=== PATIENT | male | born 1985 | race Caucasian/White ===

== ENCOUNTER 2018-02-01 20:24 | Emergency (ER) | payer MEDICARE, OTHER ==
[~2018-02-01] VITALS: Ht 175.3 cm; Wt 7.7 kg
[~2018-02-01 20:24] MED LIST: AMLO-512 PO; ATOR10TA84 PO; CARV6 PO; CEPH500 PO; ESCI10TA PO; INSU100V12 SQ; KDUR20 PO; LISI-662 PO; PANT40TA25 PO
[2018-02-01 20:47] LABS: GLUCOSE,POINT OF CARE 323 MG/DL (70-110)
[2018-02-01] MEDS ORDERED: KETOROLAC TROMETHAMINE 30 MG/ML VIAL IM ONE (21:30)
[2018-02-01 21:35] VITALS: BP 192/103
== END 2018-02-01 22:07 | disposition home or self-care (01) ==
LOC: EMS 20:26
DX: S42.295A Other nondisplaced fracture of upper end of left humerus, initial encounter for closed fracture (principal); M19.90 Unspecified osteoarthritis, unspecified site; E11.9 Type 2 diabetes mellitus without complications; F17.210 Nicotine dependence, cigarettes, uncomplicated; Z79.4 Long term (current) use of insulin; Z79.899 Other long term (current) drug therapy; W01.0XXA Fall on same level from slipping, tripping and stumbling without subsequent striking against object, initial encounter; Y93.89 Activity, other specified; Y92.89 Other specified places as the place of occurrence of the external cause; Y99.8 Other external cause status
CPT/HCPCS: 73030; 82962; 96372; 99284; J1885

== ENCOUNTER 2020-02-10 21:28 | Inpatient (IN) | payer MEDICARE, MEDICAID ==
[~2020-02-10] VITALS: Ht 175.3 cm; Wt 80.0 kg
[~2020-02-10 21:28] MED LIST changes: +ACET-784 PO; +ALBU2.5V2 NEB; +ALPR0.5T8 PO; -AMLO-512 PO; +AMLO10TA7 PO; +ASPI-728 PO; +BISA-151 PO; +BUME1TAB34 IVP; +CARV25TA77 PO; -CARV6 PO; -CEPH500 PO; +CHOL100018 PO; +CLON0.1T PO; +DOXA2TAB PO; +EPOE20002 SQ; +HEPA100I3 SQ; +HYDR-309 PO; +INSLAN SQ; +INSU100V SQ; -INSU100V12 SQ; +IPRA3AMP24 IH; -KDUR20 PO; +LIDOCAINE/PF 1% 2 ML VIAL IM ONE; -LISI-662 PO; +METR500 PO; +MOM30 PO; +ONDA-104 PO; +SPIR50 PO; +TERA5CAP12 PO; +VALS160T31 PO; +ZARO5 PO; +ZOLP10TA6 PO
[2020-02-10] MEDS ORDERED: MAG HYDROX/AL HYDROX/SIMETH 30 ML SUSP UDCUP PO ONE (22:30)
[2020-02-10] MEDS ORDERED: ACETAMINOPHEN 500 MG TABLET PO ONE (22:30)
[2020-02-10 22:39] LABS: EOSINOPHILS % (AUTO) 2.4 % (1.0-6.0); HEMATOCRIT 25.3 % (41-53); HEMOGLOBIN 8.6 g/dL (13.5-17.5); LYMPHOCYTES # (AUTO) 0.9 K/uL (1.0-4.8); LYMPHOCYTES % (AUTO) 11.3 % (22.0-44.0); MEAN CORPUSCULAR HEMOGLOBIN 29.3 pg (26.0-34.0); MEAN CORPUSCULAR VOLUME 86 fL (80-100); MONOCYTES # (AUTO) 0.8 K/uL (0.1-1.0); MONOCYTES % (AUTO) 9.9 % (2.0-9.0); NEUTROPHILS # (AUTO) 5.9 K/uL (1.8-7.7); NEUTROPHILS % (AUTO) 75.4 % (40.0-70.0); PLATELET COUNT (AUTO) 322 K/uL (150-450); RED BLOOD CELL COUNT(AUTO) 2.93 MIL/uL (4.50-5.90); RED CELL DISTRIBUTION WIDTH 14.2 % (11.5-14.5)
[2020-02-10 22:51] LABS: INR 1.2 (0.9-1.1); PROTHROMBIN TIME 12.6 SEC (9.4-11.6)
[2020-02-10 22:53] LABS: ALANINE AMINOTRANSFERASE 6 U/L (12-78); ALBUMIN 2.3 g/dL (3.4-5.0); ALKALINE PHOSPHATASE 146 U/L (46-116); ANION GAP 2 mmol/L (8-16); ASPARTATE AMINOTRANSFERASE 8 U/L (15-37); BILIRUBIN,TOTAL 0.2 mg/dL (0.1-1.0); CALCIUM, TOTAL 7.9 mg/dL (8.8-10.5); CARBON DIOXIDE 38 mmol/L (22-29); CHLORIDE 95 mmol/L (98-107); CREATINE KINASE, TOTAL ONLY 35 U/L (39-308); CREATININE 3.32 mg/dL (0.60-1.30); GLOMERULAR FILTR. RATE CALC 21 mL/min (>60); GLUCOSE,RANDOM 314 mg/dL (70-110); POTASSIUM 3.4 mmol/L (3.5-5.1); SODIUM SERUM 135 mmol/L (136-145); TOTAL PROTEIN, SERUM 7.5 g/dL (6.4-8.2); UREA NITROGEN, BLOOD 16 mg/dL (7-18)
[2020-02-10 22:55] LABS: GLUCOSE,POINT OF CARE 297 MG/DL (70-110)
[2020-02-10 22:57] LABS: B-TYPE NATRIURETIC PEPTIDE > 5000 pg/mL (0-100)
[2020-02-11] MEDS ORDERED: BUMETANIDE 0.25 MG/ML 4 ML VIAL IVP ONE (01:30)
[2020-02-11] MEDS ORDERED: 0.9% SODIUM CHLORIDE 10 ML SYRINGE IVP PRN ×2 (01:45→07:30)
[2020-02-11] MEDS ORDERED: ACETAMINOPHEN 325 MG TABLET PO PRN ×4 (01:45→21:45)
[2020-02-11] MEDS ORDERED: ONDANSETRON HCL 4 MG/2 ML VIAL IVP PRN ×3 (01:45→07:30)
[2020-02-11 03:03] LABS: INFLUENZA TYPE A NEGATIVE FOR TYPE A (NEGATIVE); INFLUENZA TYPE B NEGATIVE FOR TYPE B (NEGATIVE)
[2020-02-11] MEDS ORDERED: MORPHINE SULFATE 2 MG/ML SYRINGE IVP PRN (04:15)
[2020-02-11] MEDS ORDERED: HYDROCODONE/ACETAMINOPHEN 5-325 MG TABLET PO PRN (04:15)
[2020-02-11] MEDS ORDERED: BISACODYL 10 MG RECTAL RECTAL SUPPOSITORY PR PRN (04:15)
[2020-02-11] MEDS ORDERED: MAGNESIUM HYDROXIDE SUSPENSION 30 ML UDCUP PO PRN (04:15)
[2020-02-11] MEDS ORDERED: ZOLPIDEM TARTRATE 5 MG TABLET PO PRN (04:15)
[2020-02-11] MEDS ORDERED: HEPARIN SODIUM,PORCINE 5,000 UNITS/ML VIAL SQ SCH (08:00)
[2020-02-11] MEDS ORDERED: PANTOPRAZOLE SODIUM 40 MG DR TABLET PO SCH (09:00)
[2020-02-11] MEDS ORDERED: AmLODIPine BESYLATE 10 MG TABLET PO SCH (09:00)
[2020-02-11] MEDS ORDERED: CARVEDILOL 25 MG TABLET PO SCH (09:00)
[2020-02-11] MEDS ORDERED: CHOLECALCIFEROL (VIT D3) 1,000 UNITS TABLET PO SCH (09:00)
[2020-02-11] MEDS ORDERED: BUMETANIDE 0.25 MG/ML 10 ML VIAL IV SCH (09:00)
[2020-02-11] MEDS ORDERED: ESCITALOPRAM OXALATE 10 MG TABLET PO SCH (09:00)
[2020-02-11] MEDS ORDERED: DOCUSATE SODIUM 100 MG CAPSULE PO SCH (09:00)
[2020-02-11 09:28] LABS: C-REACTIVE PROTEIN QUANT 5.16 mg/dL (0.00-0.30)
[2020-02-11 10:33] LABS: GLUCOSE,POINT OF CARE 146 MG/DL (70-110)
[2020-02-11 18:11] LABS: CALCIUM, TOTAL 8.1 mg/dL (8.8-10.5); CREATININE 4.39 mg/dL (0.60-1.30)
[2020-02-11 18:17] LABS: ALBUMIN 2.2 g/dL (3.4-5.0); BILIRUBIN,TOTAL 0.3 mg/dL (0.1-1.0); TOTAL PROTEIN, SERUM 7.5 g/dL (6.4-8.2)
[2020-02-11] MEDS: AmLODIPine BESYLATE 10 MG TABLET PO SCH (20:33)
[2020-02-11] MEDS: CARVEDILOL 25 MG TABLET PO SCH (20:33)
[2020-02-11] MEDS ORDERED: ATORVASTATIN CALCIUM 10 MG TABLET PO SCH (21:00)
[2020-02-11 21:17] VITALS: BP 160/92
[2020-02-11] MEDS ORDERED: DEXTROSE 50%-WATER 25 GM/50 ML SYRINGE IVP PRN (21:45)
[2020-02-12] MEDS ORDERED: PNEUMOCOCCAL VACCINE POLYVALENT 0.5 ML VIAL [PPSV23] IM ONE (00:15)
[2020-02-12] MEDS ORDERED: SODIUM CHLORIDE 0.9% 1,000 ML ONE (00:28)
[2020-02-12] MEDS: ONDANSETRON HCL 4 MG TABLET PO PRN (02:03)
[2020-02-12] MEDS: INSULIN LISPRO 100 UNITS/ML SQ PRN ×3 (06:21→21:21)
[2020-02-12 06:43] VITALS: BP 152/90
[2020-02-12 06:48] LABS: BASOPHILS % (AUTO) 0.9 % (0.0-2.0); EOSINOPHILS % (AUTO) 3.4 % (1.0-6.0); HEMATOCRIT 25.7 % (41-53); HEMOGLOBIN 8.6 g/dL (13.5-17.5); LYMPHOCYTES # (AUTO) 1.1 K/uL (1.0-4.8); LYMPHOCYTES % (AUTO) 17.8 % (22.0-44.0); MEAN CORPUSCULAR HEMOGLOBIN 28.6 pg (26.0-34.0); MEAN CORPUSCULAR HGB CONC 33.5 G/dL (31.0-37.0); MEAN CORPUSCULAR VOLUME 85 fL (80-100); MONOCYTES # (AUTO) 0.6 K/uL (0.1-1.0); MONOCYTES % (AUTO) 9.8 % (2.0-9.0); NEUTROPHILS # (AUTO) 4.2 K/uL (1.8-7.7); NEUTROPHILS % (AUTO) 68.1 % (40.0-70.0); PLATELET COUNT (AUTO) 302 K/uL (150-450); RED BLOOD CELL COUNT(AUTO) 3.01 MIL/uL (4.50-5.90); RED CELL DISTRIBUTION WIDTH 14.3 % (11.5-14.5)
[2020-02-12 07:15] LABS: CALCIUM, TOTAL 8.6 mg/dL (8.8-10.5); CHOL/HDL RATIO 2.6 (4.2-7.3); CREATININE 2.68 mg/dL (0.60-1.30); FREE T4 (FREE THYROXINE) 0.98 ng/dL (0.76-1.46); MAGNESIUM 1.9 mg/dL (1.80-2.40); POTASSIUM 3.6 mmol/L (3.5-5.1); THYROID STIMULATING HORMONE 1.75 uIU/mL (0.36-3.74)
[2020-02-12] MEDS: ESCITALOPRAM OXALATE 10 MG TABLET PO SCH (09:00)
[2020-02-12] MEDS: CARVEDILOL 25 MG TABLET PO SCH ×2 (09:00→21:19)
[2020-02-12] MEDS: EPOETIN ALFA 10,000 UNITS/ML VIAL SQ SCH (09:00)
[2020-02-12] MEDS: CHOLECALCIFEROL (VIT D3) 1,000 UNITS TABLET PO SCH (09:00)
[2020-02-12] MEDS: HEPARIN SODIUM,PORCINE 5,000 UNITS/ML VIAL SQ SCH ×2 (09:00→21:22)
[2020-02-12] MEDS: AmLODIPine BESYLATE 10 MG TABLET PO SCH (09:00)
[2020-02-12] MEDS: PANTOPRAZOLE SODIUM 40 MG DR TABLET PO SCH (09:00)
[2020-02-12] MEDS: BUMETANIDE 1 MG TABLET PO SCH ×2 (09:00→21:20)
[2020-02-12 11:46] LABS: GLUCOMETER DEV NAME(LOC) 5S.1; GLUCOSE,POINT OF CARE 193 MG/DL (70-110)
[2020-02-12 11:46] LABS: GLUCOMETER DEV NAME(LOC) 5S.1; GLUCOSE,POINT OF CARE 286 MG/DL (70-110)
[2020-02-12] MEDS: VITAMIN B COMP/VIT C/FOLIC ACID CAPSULE PO SCH (12:50)
[2020-02-12 13:07] VITALS: BP 148/88
[2020-02-12] MEDS ORDERED: CHOL100018 PO (14:57)
[2020-02-12] MEDS ORDERED: EPOE10I SQ (14:57)
[2020-02-12 16:17] VITALS: BP 153/85
[2020-02-12] MEDS: IPRATROPIUM BROMIDE 0.5 MG/2.5 ML NEB SOLUTION NEB PRN ×2 (16:20→19:39)
[2020-02-12] MEDS: ALBUTEROL SULFATE 2.5 MG/0.5 ML NEB SOLUTION NEB PRN ×2 (16:20→19:39)
[2020-02-12 18:27] LABS: GLUCOMETER DEV NAME(LOC) 5S.1; GLUCOSE,POINT OF CARE 215 MG/DL (70-110)
[2020-02-12 20:56] VITALS: BP 152/80
[2020-02-12] MEDS: ATORVASTATIN CALCIUM 10 MG TABLET PO SCH (21:19)
[2020-02-12] MEDS: INSULIN GLARGINE,HUM.REC.ANLOG 100 UNITS/ML SQ SCH (21:22)
[2020-02-13 07:52] LABS: BASOPHILS % (AUTO) 1.3 % (0.0-2.0); EOSINOPHILS % (AUTO) 4.9 % (1.0-6.0); HEMOGLOBIN 8.5 g/dL (13.5-17.5); LYMPHOCYTES # (AUTO) 1.3 K/uL (1.0-4.8); LYMPHOCYTES % (AUTO) 19.3 % (22.0-44.0); MEAN CORPUSCULAR VOLUME 85 fL (80-100); MONOCYTES # (AUTO) 0.6 K/uL (0.1-1.0); MONOCYTES % (AUTO) 9.5 % (2.0-9.0); NEUTROPHILS # (AUTO) 4.3 K/uL (1.8-7.7); PLATELET COUNT (AUTO) 326 K/uL (150-450); RED BLOOD CELL COUNT(AUTO) 2.93 MIL/uL (4.50-5.90); RED CELL DISTRIBUTION WIDTH 14.1 % (11.5-14.5)
[2020-02-13 08:05] LABS: CALCIUM, TOTAL 8.2 mg/dL (8.8-10.5); CREATININE 3.96 mg/dL (0.60-1.30); PHOSPHORUS 3.4 mg/dL (2.5-4.9); POTASSIUM 4.9 mmol/L (3.5-5.1)
[2020-02-13 08:14] VITALS: BP 146/80
[2020-02-13] MEDS: CARVEDILOL 25 MG TABLET PO SCH ×2 (08:18→21:53)
[2020-02-13] MEDS: BUMETANIDE 1 MG TABLET PO SCH ×2 (08:18→21:52)
[2020-02-13] MEDS: PANTOPRAZOLE SODIUM 40 MG DR TABLET PO SCH (08:18)
[2020-02-13] MEDS: CHOLECALCIFEROL (VIT D3) 1,000 UNITS TABLET PO SCH (08:19)
[2020-02-13] MEDS: AmLODIPine BESYLATE 5 MG TABLET PO SCH (08:19)
[2020-02-13] MEDS: ESCITALOPRAM OXALATE 10 MG TABLET PO SCH (08:19)
[2020-02-13] MEDS: HEPARIN SODIUM,PORCINE 5,000 UNITS/ML VIAL SQ SCH ×2 (08:20→21:53)
[2020-02-13] MEDS: EPOETIN ALFA 10,000 UNITS/ML VIAL SQ SCH (08:23)
[2020-02-13] MEDS: VITAMIN B COMP/VIT C/FOLIC ACID CAPSULE PO SCH (08:24)
[2020-02-13 08:36] LABS: % IRON SATURATION 31.4 % (30-44)
[2020-02-13 09:33] LABS: GLUCOMETER DEV NAME(LOC) 5S.1; GLUCOSE,POINT OF CARE 231 MG/DL (70-110)
[2020-02-13 09:34] LABS: GLUCOMETER DEV NAME(LOC) 5S.1; GLUCOSE,POINT OF CARE 127 MG/DL (70-110)
[2020-02-13 11:49] VITALS: BP 139/74
[2020-02-13 12:25] LABS: GLUCOMETER DEV NAME(LOC) 5S.1; GLUCOSE,POINT OF CARE 273 MG/DL (70-110)
[2020-02-13] MEDS: INSULIN LISPRO 100 UNITS/ML SQ PRN ×3 (13:20→22:02)
[2020-02-13] MEDS: ALBUTEROL SULFATE 2.5 MG/0.5 ML NEB SOLUTION NEB PRN ×2 (14:10→19:26)
[2020-02-13] MEDS: IPRATROPIUM BROMIDE 0.5 MG/2.5 ML NEB SOLUTION NEB PRN ×2 (14:10→19:26)
[2020-02-13 21:11] VITALS: BP 153/86
[2020-02-13] MEDS: ATORVASTATIN CALCIUM 10 MG TABLET PO SCH (21:53)
[2020-02-13] MEDS: INSULIN GLARGINE,HUM.REC.ANLOG 100 UNITS/ML SQ SCH (22:02)
[2020-02-14 01:19] VITALS: BP 158/82
[2020-02-14] MEDS: ALBUTEROL SULFATE 2.5 MG/0.5 ML NEB SOLUTION NEB PRN ×2 (01:51→18:54)
[2020-02-14] MEDS: IPRATROPIUM BROMIDE 0.5 MG/2.5 ML NEB SOLUTION NEB PRN ×2 (01:51→18:54)
[2020-02-14] MEDS: ONDANSETRON HCL 4 MG TABLET PO PRN (06:24)
[2020-02-14 07:57] VITALS: BP 156/92
[2020-02-14 09:06] LABS: CREATININE 5.12 mg/dL (0.60-1.30); POTASSIUM 5.3 mmol/L (3.5-5.1); TOTAL PROTEIN, SERUM 7.7 g/dL (6.4-8.2)
[2020-02-14 09:26] LABS: GLUCOMETER DEV NAME(LOC) 5S.1; GLUCOSE,POINT OF CARE 223 MG/DL (70-110)
[2020-02-14 09:26] LABS: GLUCOMETER DEV NAME(LOC) 5S.1; GLUCOSE,POINT OF CARE 296 MG/DL (70-110)
[2020-02-14 09:27] LABS: GLUCOMETER DEV NAME(LOC) 5S.1; GLUCOSE,POINT OF CARE 161 MG/DL (70-110)
[2020-02-14 11:07] VITALS: BP 157/88
[2020-02-14] MEDS: CARVEDILOL 25 MG TABLET PO SCH ×2 (15:17→22:18)
[2020-02-14] MEDS: AmLODIPine BESYLATE 5 MG TABLET PO SCH (15:18)
[2020-02-14] MEDS: CHOLECALCIFEROL (VIT D3) 1,000 UNITS TABLET PO SCH (15:20)
[2020-02-14] MEDS: BUMETANIDE 1 MG TABLET PO SCH ×2 (15:20→22:18)
[2020-02-14] MEDS: VITAMIN B COMP/VIT C/FOLIC ACID CAPSULE PO SCH (15:20)
[2020-02-14] MEDS: PANTOPRAZOLE SODIUM 40 MG DR TABLET PO SCH (15:20)
[2020-02-14] MEDS: HEPARIN SODIUM,PORCINE 5,000 UNITS/ML VIAL SQ SCH ×2 (15:21→22:19)
[2020-02-14] MEDS: ESCITALOPRAM OXALATE 10 MG TABLET PO SCH (15:21)
[2020-02-14] MEDS: EPOETIN ALFA 10,000 UNITS/ML VIAL SQ SCH (15:21)
[2020-02-14 16:58] VITALS: BP 140/81
[2020-02-14] MEDS ORDERED: LIDOCAINE/PF 1% 2 ML VIAL IM ONE (17:03)
[2020-02-14] MEDS: INSULIN LISPRO 100 UNITS/ML SQ PRN ×2 (17:46→22:25)
[2020-02-14 20:14] LABS: GLUCOMETER DEV NAME(LOC) 5S.1; GLUCOSE,POINT OF CARE 240 MG/DL (70-110)
[2020-02-14 20:21] VITALS: BP 147/87
[2020-02-14 22:18] LABS: GLUCOMETER DEV NAME(LOC) 5S.2A; GLUCOSE,POINT OF CARE 102 MG/DL (70-110)
[2020-02-14 22:18] LABS: GLUCOMETER DEV NAME(LOC) 5S.2A; GLUCOSE,POINT OF CARE 64 MG/DL (70-110)
[2020-02-14] MEDS: ATORVASTATIN CALCIUM 10 MG TABLET PO SCH (22:18)
[2020-02-14] MEDS: INSULIN GLARGINE,HUM.REC.ANLOG 100 UNITS/ML SQ SCH (22:26)
[2020-02-15] MEDS: IPRATROPIUM BROMIDE 0.5 MG/2.5 ML NEB SOLUTION NEB PRN ×2 (00:02→19:48)
[2020-02-15] MEDS: ALBUTEROL SULFATE 2.5 MG/0.5 ML NEB SOLUTION NEB PRN ×2 (00:02→19:48)
[2020-02-15] MEDS: HYDROCODONE/ACETAMINOPHEN 5-325 MG TABLET PO PRN ×3 (00:26→16:50)
[2020-02-15] MEDS: ZOLPIDEM TARTRATE 5 MG TABLET PO PRN ×2 (00:26→21:37)
[2020-02-15 00:28] VITALS: BP 159/82
[2020-02-15 03:22] LABS: GLUCOMETER DEV NAME(LOC) 5N.1; GLUCOSE,POINT OF CARE 291 MG/DL (70-110)
[2020-02-15] MEDS: INSULIN LISPRO 100 UNITS/ML SQ PRN ×3 (06:44→21:39)
[2020-02-15] MEDS: AmLODIPine BESYLATE 5 MG TABLET PO SCH (08:33)
[2020-02-15] MEDS: CARVEDILOL 25 MG TABLET PO SCH ×2 (08:33→21:36)
[2020-02-15] MEDS: CHOLECALCIFEROL (VIT D3) 1,000 UNITS TABLET PO SCH (08:33)
[2020-02-15] MEDS: PANTOPRAZOLE SODIUM 40 MG DR TABLET PO SCH (08:34)
[2020-02-15] MEDS: ESCITALOPRAM OXALATE 10 MG TABLET PO SCH (08:34)
[2020-02-15] MEDS: BUMETANIDE 1 MG TABLET PO SCH ×2 (08:35→21:37)
[2020-02-15] MEDS: HEPARIN SODIUM,PORCINE 5,000 UNITS/ML VIAL SQ SCH ×2 (08:37→21:40)
[2020-02-15 08:40] VITALS: BP 152/74
[2020-02-15] MEDS: VITAMIN B COMP/VIT C/FOLIC ACID CAPSULE PO SCH (08:42)
[2020-02-15] MEDS: EPOETIN ALFA 10,000 UNITS/ML VIAL SQ SCH (08:54)
[2020-02-15 14:30] LABS: GLUCOMETER DEV NAME(LOC) 5N.1; GLUCOSE,POINT OF CARE 261 MG/DL (70-110)
[2020-02-15 15:16] VITALS: BP 135/69
[2020-02-15 18:06] LABS: GLUCOMETER DEV NAME(LOC) 5N.1; GLUCOSE,POINT OF CARE 304 MG/DL (70-110)
[2020-02-15] MEDS: ATORVASTATIN CALCIUM 10 MG TABLET PO SCH (21:36)
[2020-02-15] MEDS: INSULIN GLARGINE,HUM.REC.ANLOG 100 UNITS/ML SQ SCH (21:39)
[2020-02-15] MEDS: MUPIROCIN CALCIUM 2% 22 GM OINTMENT NASAL SCH (21:40)
[2020-02-15 22:16] VITALS: BP 140/99
[2020-02-15 23:27] LABS: GLUCOMETER DEV NAME(LOC) 5S.1; GLUCOSE,POINT OF CARE 253 MG/DL (70-110)
[2020-02-16] MEDS: INSULIN LISPRO 100 UNITS/ML SQ PRN ×3 (06:58→20:31)
[2020-02-16 07:40] VITALS: BP 150/64
[2020-02-16 07:57] LABS: GLUCOMETER DEV NAME(LOC) 5N.1; GLUCOSE,POINT OF CARE 177 MG/DL (70-110)
[2020-02-16] MEDS: AmLODIPine BESYLATE 5 MG TABLET PO SCH (08:56)
[2020-02-16] MEDS: BUMETANIDE 1 MG TABLET PO SCH ×2 (08:56→20:27)
[2020-02-16] MEDS: ESCITALOPRAM OXALATE 10 MG TABLET PO SCH (08:57)
[2020-02-16] MEDS: PANTOPRAZOLE SODIUM 40 MG DR TABLET PO SCH (08:57)
[2020-02-16] MEDS: HYDROCODONE/ACETAMINOPHEN 5-325 MG TABLET PO PRN (08:57)
[2020-02-16] MEDS: CHOLECALCIFEROL (VIT D3) 1,000 UNITS TABLET PO SCH (08:57)
[2020-02-16] MEDS: CARVEDILOL 25 MG TABLET PO SCH ×2 (08:57→20:27)
[2020-02-16] MEDS: ATORVASTATIN CALCIUM 10 MG TABLET PO SCH (08:57)
[2020-02-16] MEDS: VITAMIN B COMP/VIT C/FOLIC ACID CAPSULE PO SCH (08:57)
[2020-02-16] MEDS: HEPARIN SODIUM,PORCINE 5,000 UNITS/ML VIAL SQ SCH ×2 (08:58→20:26)
[2020-02-16] MEDS: MUPIROCIN CALCIUM 2% 22 GM OINTMENT NASAL SCH ×2 (09:00→20:27)
[2020-02-16 13:00] VITALS: BP 141/78
[2020-02-16 14:59] LABS: GLUCOMETER DEV NAME(LOC) 5N.1; GLUCOSE,POINT OF CARE 231 MG/DL (70-110)
[2020-02-16 15:50] VITALS: BP 142/71
[2020-02-16 18:32] LABS: GLUCOMETER DEV NAME(LOC) 5N.1; GLUCOSE,POINT OF CARE 160 MG/DL (70-110)
[2020-02-16 19:30] VITALS: BP 143/63
[2020-02-16 20:26] LABS: GLUCOMETER DEV NAME(LOC) 5S.1; GLUCOSE,POINT OF CARE 270 MG/DL (70-110)
[2020-02-16] MEDS: INSULIN GLARGINE,HUM.REC.ANLOG 100 UNITS/ML SQ SCH (20:29)
[2020-02-17] VITALS: BP 136/71
[2020-02-17] MEDS: ZOLPIDEM TARTRATE 5 MG TABLET PO PRN (00:44)
[2020-02-17] MEDS: HYDROCODONE/ACETAMINOPHEN 5-325 MG TABLET PO PRN (00:51)
[2020-02-17] MEDS: IPRATROPIUM BROMIDE 0.5 MG/2.5 ML NEB SOLUTION NEB PRN (02:02)
[2020-02-17] MEDS: ALBUTEROL SULFATE 2.5 MG/0.5 ML NEB SOLUTION NEB PRN (02:02)
[2020-02-17] MEDS: INSULIN LISPRO 100 UNITS/ML SQ PRN ×2 (06:07→12:17)
[2020-02-17 06:08] VITALS: BP 152/74
[2020-02-17 06:31] LABS: GLUCOMETER DEV NAME(LOC) 5S.1; GLUCOSE,POINT OF CARE 266 MG/DL (70-110)
[2020-02-17] MEDS: HEPARIN SODIUM,PORCINE 5,000 UNITS/ML VIAL SQ SCH (08:10)
[2020-02-17] MEDS: PANTOPRAZOLE SODIUM 40 MG DR TABLET PO SCH (08:10)
[2020-02-17] MEDS: CHOLECALCIFEROL (VIT D3) 1,000 UNITS TABLET PO SCH (08:10)
[2020-02-17] MEDS: VITAMIN B COMP/VIT C/FOLIC ACID CAPSULE PO SCH (08:10)
[2020-02-17] MEDS: BUMETANIDE 1 MG TABLET PO SCH (08:12)
[2020-02-17] MEDS: ESCITALOPRAM OXALATE 10 MG TABLET PO SCH (08:12)
[2020-02-17] MEDS: MUPIROCIN CALCIUM 2% 22 GM OINTMENT NASAL SCH (08:17)
[2020-02-17 08:49] VITALS: BP 140/76
[2020-02-17] MEDS: EPOETIN ALFA 10,000 UNITS/ML VIAL SQ SCH (09:15)
[2020-02-17] MEDS ORDERED: SODIUM CHLORIDE 0.9% 1,000 ML ONE (09:22)
[2020-02-17] MEDS ORDERED: BUME1TAB6 PO (10:33)
[2020-02-17] MEDS ORDERED: PANT40TA25 PO (10:33)
[2020-02-17] MEDS ORDERED: INSLAN SQ (10:33)
[2020-02-17] MEDS ORDERED: ATOR10TA69 PO (10:33)
[2020-02-17] MEDS ORDERED: ESCI10TA61 PO (10:33)
[2020-02-17] MEDS ORDERED: AMLO5TAB66 PO (10:33)
[2020-02-17] MEDS ORDERED: MUPI22OI2 NASAL (10:33)
[2020-02-17] MEDS ORDERED: CARV25 PO (10:33)
[2020-02-17] MEDS ORDERED: CHOL100018 PO (10:33)
[2020-02-17 11:52] LABS: GLUCOMETER DEV NAME(LOC) 5N.1; GLUCOSE,POINT OF CARE 231 MG/DL (70-110)
[2020-02-17 12:01] VITALS: BP 157/71
[2020-02-17] MEDS: AmLODIPine BESYLATE 5 MG TABLET PO SCH (13:34)
[2020-02-17] MEDS: CARVEDILOL 25 MG TABLET PO SCH (13:34)
[2020-02-17] MEDS ORDERED: LIDOCAINE/PF 1% 2 ML VIAL IM ONE (13:59)
== END 2020-02-17 14:00 | disposition home or self-care (01) | DRG 193 ==
LOC: EMS 21:30 → 5N 02-11 18:46
PROVIDERS: ADMIT Internal Medicine; ATTEND Internal Medicine
DX: J18.9 Pneumonia, unspecified organism (principal); N18.6 End stage renal disease; E43 Unspecified severe protein-calorie malnutrition; I13.2 Hypertensive heart and chronic kidney disease with heart failure and with stage 5 chronic kidney disease, or end stage renal disease; J90 Pleural effusion, not elsewhere classified; J98.11 Atelectasis; I50.32 Chronic diastolic (congestive) heart failure; E87.1 Hypo-osmolality and hyponatremia; E11.8 Type 2 diabetes mellitus with unspecified complications; D64.9 Anemia, unspecified; Z91.14 Patient's other noncompliance with medication regimen; F89 Unspecified disorder of psychological development; Z68.24 Body mass index [BMI] 24.0-24.9, adult; E11.22 Type 2 diabetes mellitus with diabetic chronic kidney disease; G89.29 Other chronic pain; Z99.2 Dependence on renal dialysis; Z79.899 Other long term (current) drug therapy; H54.8 Legal blindness, as defined in USA; Z87.891 Personal history of nicotine dependence; Z91.19 Patient's noncompliance with other medical treatment and regimen
CPT/HCPCS: 71250; 83036; 83540; 83550; 83615; 83735; 84100; 84145; 84155; 84439; 84443; 86140; 87040; 87081; 87340; 87635; 87804; 90935; 93005; 93306; 94640; J0885; J1644; J1815; J3490; J7030; Q0162

== ENCOUNTER 2020-02-18 21:14 | Emergency (ER) | payer MEDICARE, MEDICAID ==
[~2020-02-18] VITALS: Ht 175.3 cm; Wt 81.7 kg
[~2020-02-18 21:14] MED LIST changes: -ACET-784 PO; -ALBU2.5V2 NEB; -ALPR0.5T8 PO; -AMLO10TA7 PO; +AMLO5TAB66 PO; -ASPI-728 PO; +ATOR10TA69 PO; -ATOR10TA84 PO; -BISA-151 PO; -BUME1TAB34 IVP; +BUME1TAB6 PO; +CARV25 PO; -CARV25TA77 PO; -CLON0.1T PO; -DOXA2TAB PO; -EPOE20002 SQ; -ESCI10TA PO; +ESCI10TA61 PO; -HEPA100I3 SQ; -HYDR-309 PO; -INSU100V SQ; -IPRA3AMP24 IH; -LIDOCAINE/PF 1% 2 ML VIAL IM ONE; -METR500 PO; -MOM30 PO; +MUPI22OI2 NASAL; -ONDA-104 PO; -SPIR50 PO; -TERA5CAP12 PO; -VALS160T31 PO; -ZARO5 PO; -ZOLP10TA6 PO
[2020-02-18 22:00] VITALS: BP 169/91
[2020-02-18 22:32] LABS: BASOPHILS % (AUTO) 1.4 % (0.0-2.0); EOSINOPHILS % (AUTO) 6.1 % (1.0-6.0); HEMATOCRIT 23.6 % (41-53); HEMOGLOBIN 7.9 g/dL (13.5-17.5); LYMPHOCYTES % (AUTO) 14.5 % (22.0-44.0); MEAN CORPUSCULAR HEMOGLOBIN 28.7 pg (26.0-34.0); MEAN CORPUSCULAR HGB CONC 33.3 G/dL (31.0-37.0); MEAN CORPUSCULAR VOLUME 86 fL (80-100); MONOCYTES # (AUTO) 0.7 K/uL (0.1-1.0); MONOCYTES % (AUTO) 10.2 % (2.0-9.0); NEUTROPHILS # (AUTO) 4.7 K/uL (1.8-7.7); NEUTROPHILS % (AUTO) 67.8 % (40.0-70.0); PLATELET COUNT (AUTO) 248 K/uL (150-450); RED BLOOD CELL COUNT(AUTO) 2.74 MIL/uL (4.50-5.90); RED CELL DISTRIBUTION WIDTH 14.9 % (11.5-14.5)
[2020-02-18 22:45] LABS: CREATININE 4.26 mg/dL (0.60-1.30); POTASSIUM 5.1 mmol/L (3.5-5.1)
[2020-02-18 22:51] LABS: ALBUMIN 2.3 g/dL (3.4-5.0); BILIRUBIN,TOTAL 0.3 mg/dL (0.1-1.0); TOTAL PROTEIN, SERUM 7.7 g/dL (6.4-8.2)
[2020-02-18] MEDS ORDERED: BUMETANIDE 0.25 MG/ML 4 ML VIAL IVP ONE (23:30)
[2020-02-19] MEDS ORDERED: BUMETANIDE 1 MG TABLET PO ONE (00:15)
== END 2020-02-19 01:50 | disposition home or self-care (01) ==
LOC: EMS 21:16
DX: I13.2 Hypertensive heart and chronic kidney disease with heart failure and with stage 5 chronic kidney disease, or end stage renal disease (principal); E11.22 Type 2 diabetes mellitus with diabetic chronic kidney disease; I50.30 Unspecified diastolic (congestive) heart failure; N18.6 End stage renal disease; F17.210 Nicotine dependence, cigarettes, uncomplicated; Z99.2 Dependence on renal dialysis; Z79.4 Long term (current) use of insulin; Z98.890 Other specified postprocedural states; Z79.899 Other long term (current) drug therapy
CPT/HCPCS: 93005; J3490